=== PATIENT | male | born 1985 | race Caucasian/White ===

== ENCOUNTER 2016-06-18 19:32 | Emergency (ER) | payer OTHER ==
[2016-06-18] MEDS ORDERED: SODIUM CHLORIDE 0.9% 1,000 ML ONE (20:22)
[2016-06-18] MEDS ORDERED: KETOROLAC TROMETHAMINE 30 MG/ML 1 ML VIAL ONE (20:36)
[2016-06-18] MEDS ORDERED: ONDANSETRON 4 MG/2ML 2 ML VIAL ONE (20:36)
[2016-06-18] MEDS ORDERED: INSULIN REGULAR HUMAN (DOSE) 100 UNITS/1 ML ONE ×2 (20:37→20:42)
[2016-06-18] MEDS ORDERED: INSULIN HUMAN NPH 70/REG 30 100 UNITS/1 ML UNIT (D0SE) SUB-Q ONE (20:38)
[2016-06-18 20:50] LABS: ABSOLUTE NEUTROPHIL COUNT 3.9 K/mm3 (1.8-7.7); BASO % 0.1 % (0.2-1.0); EOS # 0.1 (0.0-0.5); EOS % 1.4 % (0.9-2.9); HEMATOCRIT 43.1 % (32.0-52.0); HEMOGLOBIN 14.1 gm/l (14.0-18.0); IMM NEUT% 0.1 % (0-1); LYMPH # 2.4 (1.0-4.8); LYMPH % 35.3 % (15-45); MEAN CELL VOLUME 92.9 fl (80.0-94.0); MEAN CORPUSCULAR HEMOGLOBIN 30.4 pg (27.0-31.0); MEAN CORPUSCULAR HGB CONC 32.7 g/dl (33.0-37.0); MEAN PLATELET VOLUME 10.8 fl (7.4-10.4); MONO # 0.5 (0.0-0.8); MONO % 6.5 % (4-12); NEUT % 56.6 % (43-75); PLATELET COUNT 277 K/mm3 (130-400); RED CELL DISTRIBUTION WIDTH 12.3 % (11.5-14.5)
[2016-06-18 20:59] LABS: ACETONE,SERUM NEGATIVE (NEGATIVE)
[2016-06-18] MEDS ORDERED: INSULIN GLARGINE (DOSE) 100 UNITS/ML UNIT SUB-Q ONE (21:00)
[2016-06-18 21:08] LABS: ALB/GLOB RATIO 1.5 (>1.0); ALBUMIN 3.7 gm/dL (3.5-5.7); CALCIUM 8.8 mg/dL (8.6-10.3)
[2016-06-18 21:46] LABS: URINE BILIRUBIN NEGATIVE (NEGATIVE); URINE BLOOD TRACE (NEGATIVE); URINE GLUCOSE (UA) 3+ (NEGATIVE); URINE LEUKOCYTE ESTERASE NEGATIVE (NEGATIVE); URINE NITRITE NEGATIVE (NEGATIVE); URINE PROTEIN NEGATIVE (NEGATIVE); URINE UROBILINOGEN NORMAL (0-1 mg/dl)
[2016-06-18 21:47] LABS: URINE APPEARANCE CLEAR; URINE COLOR LIGHT YELLOW
[2016-06-18 22:01] LABS: URINE BACTERIA FEW; URINE EPITHELIAL CELLS 0-1 /hpf; URINE WBC 0-1 /hpf
--- NOTE | 2016-06-19 07:52 | RAD ---
Exam: Two-view chest COMPARISON: None INDICATION: Back pain, fall on ice. FINDINGS: PA and lateral views of the chest were obtained. Cardiomediastinal silhouette is within normal limits. Lung volumes are somewhat low. There is no focal airspace disease or pleural effusion. No pneumothorax is identified. No obvious displaced rib fracture. No vertebral body compression fracture is seen. A gentle levoconvex curvature is seen at the thoracolumbar junction. Impression: No acute pulmonary process.
== END 2016-06-19 | disposition home or self-care (01) ==
LOC: ED 19:32
DX: R10.9 Unspecified abdominal pain (principal); E10.65 Type 1 diabetes mellitus with hyperglycemia; Z79.84 Long term (current) use of oral hypoglycemic drugs; Z79.4 Long term (current) use of insulin; Z79.899 Other long term (current) drug therapy; Z88.0 Allergy status to penicillin
CPT/HCPCS: 82009; 82150; 85025; 80053; 81001; 71020; 96375 ×2; 99283 ×2; 96372; 96374; 96361; 82962 ×3; J1885; J2405; J7030; J1815 ×4

== ENCOUNTER 2016-10-13 20:03 | Emergency (ER) | payer OTHER ==
[2016-10-13 20:53] LABS: ABSOLUTE NEUTROPHIL COUNT 5.9 K/mm3 (1.8-7.7); BASO % 0.2 % (0.2-1.0); EOS # 0.1 (0.0-0.5); EOS % 0.8 % (0.9-2.9); HEMATOCRIT 44.7 % (32.0-52.0); HEMOGLOBIN 15.3 gm/l (14.0-18.0); IMM NEUT% 0.2 % (0-1); LYMPH # 2.1 (1.0-4.8); MEAN CELL VOLUME 87.6 fl (80.0-94.0); MEAN CORPUSCULAR HGB CONC 34.2 g/dl (33.0-37.0); MEAN PLATELET VOLUME 10.2 fl (7.4-10.4); MONO # 0.4 (0.0-0.8); MONO % 4.5 % (4-12); NEUT % 69.3 % (43-75); PLATELET COUNT 301 K/mm3 (130-400); RED CELL DISTRIBUTION WIDTH 12.1 % (11.5-14.5)
[2016-10-13] MEDS ORDERED: ONDANSETRON 4 MG/2ML 2 ML VIAL ONE (20:55)
[2016-10-13 21:15] LABS: ALB/GLOB RATIO 1.2 (>1.0); ALBUMIN 3.3 gm/dL (3.5-5.7); CALCIUM 8.8 mg/dL (8.6-10.3); MAGNESIUM 1.8 mg/dL (1.9-2.7)
[2016-10-13] MEDS ORDERED: KETOROLAC TROMETHAMINE 15 MG/ML VIAL ONE (22:03)
[2016-10-13] MEDS ORDERED: DIPHENHYDRAMINE HCL 50 MG/1 ML VIAL ONE (22:03)
[2016-10-13] MEDS ORDERED: LORAZEPAM 2 MG/ML 1ML SDV ONE (22:04)
== END 2016-10-13 22:30 | disposition home or self-care (01) ==
LOC: ED 20:03
DX: E10.65 Type 1 diabetes mellitus with hyperglycemia (principal); R51 Headache; Z79.4 Long term (current) use of insulin
CPT/HCPCS: 85025; 80053; 83735; 87804; 96375 ×3; 99283 ×2; 96374; 96361; J2060; J1200; J1885; J2405